=== PATIENT | female | born 1990 | race Caucasian/White ===

== ENCOUNTER 2018-08-01 05:16 | Inpatient (IN) | payer MEDICAID ==
--- NOTE | 2018-07-31 10:49 | PCM.PREANE ---
Preanesthetic Assessment - Anesthesia/Transfusion/Family Hx Anesthesia History: Prior Anesthesia Without Reaction (previous under spinal (decreased heart rate): SAB without problems. No other history of surgeries or anesthetics.) Family History of Anesthesia Reaction: No Transfusion History: No Prior Transfusion(s) - Review of Systems General: No Symptoms (obese) Pulmonary: No Symptoms (quit smoking 2013, no Marajuana x 1 year,) Cardiovascular: No Symptoms (palpitations--history ofSVTs--workup was negative. lStill has occasional episodes of SVTs with this --no dizziness or LOC- -brief periods, spontaneous resolutions. No treatment for SVTs.) Neurological: No Symptoms (PTSD, history of concussion 2008 with no residuals) Other: Reports: None (chilo/candidiasis, maxillary sinusitis,) - Physical Assessment NPO Status Date: 08/01/18 NPO Status Time: 00:00 Pulse: 87 O2 Sat by Pulse Oximetry: 97 Respiratory Rate: 20 Blood Pressure: 128/65 Height: 1.75 m Weight: 96.162 kg ASA Class: 2 Mental Status: Alert & Oriented x3 Airway Class: Mallampati = 2 Dentition: Reports: Normal Dentition Thyro-Mental Finger Breadths: 2 Mouth Opening Finger Breadths: 3 ROM/Head Extension: Full Lungs: Clear to Auscultation, Normal Respiratory Effort Cardiovascular: Regular Rate, Regular Rhythm, No Murmurs - Lab Values: 2013 workup for palpitaitons was normal. jWorkup included EKG, ECHO (65% EF), Chest CT, Holter. Jul 23 HH= 13.2/37.9 plts = 231k - Allergies Allergies/Adverse Reactions: Allergies Allergy/AdvReac Type Severity Reaction Status Date / Time latex Allergy Rash Verified 07/26/18 14:00 - Blood Blood Available: Yes Product(s) Available: PRBC - Anesthesia Plan Pre-Op Medication Ordered: Antacids - Acknowledgements Anesthesia Type Planned: Spinal (Plan: SAB wit GA backup. Discussed with patient and spouse (James). All questions answered. Consent signed.) Pt an Appropriate Candidate for the Planned Anesthesia: Yes Alternatives and Risks of Anesthesia Discussed w Pt/Guardian: Yes Pt/Guardian Understands and Agrees with Anesthesia Plan: Yes PreAnesthesia Questionnaire HEENT History: Cardiovascular History: Reports: Arrhythmia Other Cardiovascular History: hx SVT Genitourinary History: Reports: None GRADUATE FELLOW History: Reports: Musculoskeletal History: Reports: Fracture Other Musculoskeletal History: hx fx foot Neurological History: Reports: Concussion Psychiatric History: Reports: PTSD - Past Surgical History Head Surgeries/Procedures: Reports: None Female Surgical History: Reports: Section - SUBSTANCE USE Smoking Status *Q: Former Smoker Recreational Drug Use History: Yes 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
[2018-08-01] MEDS ORDERED: Citric Acid/Sodium Citrate Solution 30 ML Cup PO ONE (05:44)
[2018-08-01] MEDS ORDERED: Sodium Chloride 0.9% 10 ML Syringe FLUSH PRN (05:44)
[2018-08-01] MEDS ORDERED: Sodium Chloride 0.9% 2.5 ML Syringe FLUSH PRN (05:44)
[2018-08-01] MEDS ORDERED: Oxytocin/0.9 % Sodium Chloride 30 UNIT/500 ML BAG IV SCH (05:45)
[2018-08-01] MEDS: Lactated Ringers 1,000 ML IV SCH ×3 (05:45→07:59)
[2018-08-01] MEDS ORDERED: Methylergonovine 0.2 MG/1 ML Amp ONE (06:55)
[2018-08-01] MEDS ORDERED: ceFAZolin 1 GM Vial ONE ×2 (06:56)
[2018-08-01] MEDS ORDERED: Sodium Chloride 0.9% 20 ML ONE ×2 (06:56)
[2018-08-01] MEDS ORDERED: Oxytocin 10 Units/1 ML SDV ONE ×4 (06:57)
[2018-08-01] MEDS ORDERED: diphenhydrAMINE 50 MG/ML SDV ONE (06:57)
[2018-08-01] MEDS ORDERED: Phenylephrine 1% 10 MG/ML SDV ONE (06:57)
[2018-08-01] MEDS ORDERED: Ondansetron 4 MG/2 ML SDV ONE (06:57)
[2018-08-01] MEDS ORDERED: Morphine PF 10 MG/10 ML SDV ONE (06:58)
[2018-08-01] MEDS ORDERED: Propofol 200 MG/20 ML SDV ONE (07:03)
[2018-08-01] MEDS ORDERED: ceFAZolin 2 GM in Premix Bag 1 BAG IV ONE (07:45)
[2018-08-01] MEDS ORDERED: Citric Acid/Sodium Citrate Solution 30 ML Cup ONE (07:52)
[2018-08-01] MEDS ORDERED: Aluminum Hydroxide/Magnesium Hydroxide/Simethicone Susp 30 ML Cup PO PRN (08:53)
[2018-08-01] MEDS ORDERED: Ondansetron 4 MG/2 ML SDV IVPUSH PRN (08:53)
[2018-08-01] MEDS ORDERED: Lanolin 100% Cream 7 GM Tube TOP PRN (08:53)
[2018-08-01] MEDS ORDERED: diphenhydrAMINE 50 MG/ML SDV IVPUSH PRN (08:53)
[2018-08-01] MEDS ORDERED: Bisacodyl 10 MG Supp RECTAL PRN (08:53)
[2018-08-01] MEDS ORDERED: Acetaminophen/oxyCODONE 325-5 MG Tab PO PRN ×2 (08:53)
[2018-08-01] MEDS ORDERED: Nalbuphine 10 MG/1 ML Vial IVPUSH PRN (08:59)
[2018-08-01] MEDS ORDERED: Meperidine PF 25 MG/ML Syringe IVPUSH SCH (09:00)
[2018-08-01] MEDS ORDERED: Lactated Ringers 1,000 ML IV SCH (09:00)
[2018-08-01] MEDS ORDERED: Ondansetron 4 MG/2 ML SDV IVPUSH SCH (09:00)
--- NOTE | 2018-08-01 09:01 | PCM.OPNOTE ---
- General Post-Op/Procedure Note Date of Surgery/Procedure: 08/01/18 Operative Procedure(s): Repeat LTCS Findings: Viable female APGARs 8, 9 weight 3950 gm. Intact placenta with 3V cord. Normal appearing pelvis. Pre Op Diagnosis: 39 week IUP. Previous c section, desires repeat Post-Op Diagnosis: Same Anesthesia Technique: Spinal Primary Surgeon: Patti Jose Fluid Replacement, Intraop: 2,600 EBL in mLs: 350 Complications: none known Condition: Good Free Text/Narrative:: Dictation [id number]
[2018-08-01] MEDS: Ketorolac 30 MG/ML SDV IVPUSH SCH ×3 (09:13→21:14)
--- NOTE | 2018-08-01 14:01 | PCM48HPAN ---
Post Anesthesia Note - EVALUATION WITHIN 48HRS OF ANESTHETIC Vital Signs in Normal Range: Yes Patient Participated in Evaluation: Yes Respiratory Function Stable: Yes Airway Patent: Yes Cardiovascular Function Stable: Yes Hydration Status Stable: Yes Pain Control Satisfactory: Yes Nausea and Vomiting Control Satisfactory: Yes Pulse Rate: 87 Resp Rate: 17 Blood Pressure: 128/65 - COMMENTS/OBSERVATIONS Free Text/Narrative:: awake, alert, vitals stable. Minimal pain. No nausea. Spinal work off. Has not yet urinated. Good post op phase II recovery.
--- NOTE | 2018-08-01 15:37 | OR ---
SURGEON: Patti Jose M.D. DATE OF PROCEDURE: 08/01/2018 PREOPERATIVE DIAGNOSES: 1. Thirty-nine week intrauterine . 2. Previous section, desires repeat. POSTOPERATIVE DIAGNOSES: 1. Thirty-nine week intrauterine . 2. Previous section, desires repeat. PROCEDURE: Repeat low-transverse section. ANESTHESIA: Spinal. ESTIMATED BLOOD LOSS: 350 mL. FLUIDS: 2600 mL of crystalloid. FINDINGS: Viable female, scores of 8 at one minute and 9 at five minutes, weight of 3950 g, intact placenta with three-vessel cord, normal-appearing pelvis. COMPLICATIONS: None. DISPOSITION: The patient to PACU, infant nursery, stable. INDICATION FOR PROCEDURE: Joann is a 28-year-old, G3, P1-0-1-1, at 39 weeks' gestational age, presents this morning for a scheduled repeat delivery. Risks of the procedure have been discussed and proper consent obtained. PROCEDURE IN DETAIL: The patient was taken to the operating room, where she underwent spinal anesthesia and then was placed in dorsal supine position with leftward tilt. SCDs to lower extremities. Strickland to gravity. She was prepped and draped in usual sterile fashion. Anesthesia was tested and found to be adequate. Previous Pfannenstiel scar was now excised. Subcutaneous tissue was incised down to the level of the rectus fascia, which was incised in midline, lateralized on either side. The superior aspect of the fascia was tented upward, dissected sharply and bluntly from underlying muscles. In a similar aspect, it was performed with the inferior aspect of the fascia. The rectus muscles and peritoneum were now entered. Rectus muscles in the midline. Peritoneum was in midline and lateralized bluntly. Uterine position and position gently palpated. A self-retaining retractor now gently placed. Uterovesical reflection visualized. Bladder flap was created sharply and bluntly. Bladder was mobilized away from lower uterine segment. Low transverse hysterotomy was now performed. The uterine cavity was entered with blunt-end scalpel. Hysterotomy was lateralized bluntly. Amniotomy was performed. Clear fluid was returned. Head was flexed. Fundal pressure was applied. The head was delivered, followed by anterior shoulder, posterior shoulder, and remainder of the body without difficulty. The infant's oropharynx and nares bulb suctioned. The cord was clamped x2 and cut. was handed off to attending nursing staff. Cord arterial, cord venous, cord blood samples obtained. The placenta was now delivered. Uterine cavity was cleared of all clot and debris. The posterior aspect of the uterus was inspected, no defects or hematomas found to be forming. Tubes and ovaries appeared normal. The region was well irrigated and suction dried. The uterus returned to abdominal cavity. Colonic gutters were cleared of all clots and debris, well irrigated and suction dried. Any areas of oozing were cauterized. Hemostasis appeared evident. Self-retaining retractor now gently removed. Bladder blade was placed. Hysterotomy once again was inspected and found to be hemostatic. The bladder blade was removed. The rectus muscle and peritoneum were now re- approximated using 0 Vicryl an inverted mattress suture technique. Anterior aspect of the muscle, posterior aspect of the fascia closely inspected. Any areas of oozing were cauterized. The rectus fascia was re-approximated using 0 Vicryl beginning laterally on each side and meeting in the midline. Subcutaneous tissues were irrigated and suction dried. Any areas of oozing were cauterized. The skin edges were re-approximated with 3-0 Vicryl in subcuticular fashion on a Maurilio needle, followed by re-imbrication with half-inch Steri- Strips and Mastisol. Uterus remained firm. Sponge, instrument, and needle counts were correct x2. The patient tolerated the procedure well overall. She will go to PACU in stable condition, to nursery. CHARLES / ZOYA /[id number]
[2018-08-01] MEDS: Docusate Sodium 100 MG Cap PO SCH ×2 (20:33→21:14)
[2018-08-02] MEDS: Simethicone 80 MG Tab.Chew PO SCH ×4 (00:55→20:16)
[2018-08-02] MEDS: Ketorolac 30 MG/ML SDV IVPUSH SCH ×2 (03:23→10:00)
--- NOTE | 2018-08-02 08:49 | PCM.PNPP ---
- General Info Date of Service: 08/02/18 Functional Status: Reports: Pain Controlled, Tolerating Diet, Ambulating, Urinating - Review of Systems General: Denies: Fever, Weakness, Fatigue Pulmonary: Denies: Shortness of Breath Cardiovascular: Denies: Chest Pain, Palpitations, Lightheadedness Gastrointestinal: Denies: Abdominal Pain, Nausea, Vomiting Genitourinary: Denies: Flank Pain Neurological: Reports: No Symptoms Psychiatric: Reports: No Symptoms - General Info Date of Service: 08/02/18 - Patient Data Vital Signs - Most Recent: Last Vital Signs Temp 35.9 C 08/02/18 08:24 Pulse 80 08/02/18 08:24 Resp 17 08/02/18 08:24 BP 108/64 08/02/18 08:24 Pulse Ox 93 L 08/02/18 08:24 Weight - Most Recent: 96.162 kg I&O - Last 24 Hours: Intake & Output 08/01/18 08/02/18 08/02/18 22:59 06:59 14:59 Intake Total 300 Output Total 715 2300 Balance -415 -2300 Lab Results - Last 24 Hours: Laboratory Results - last 24 hr 08/01/18 08/02/18 Range/Units 08:27 04:54 Hgb 11.0 L (12.0-16.0) g/dL Hct 32.5 L (36.0-46.0) % Cord ABG pH 7.202 (7.18-7.38) Cord ABG Base Excess -3 (-10--2) Cord VBG pH 7.316 (7.25-7.45) Cord VBG Base Excess -4 (-10--2) Med Orders - Current: Current Medications Al Hydroxide/Mg Hydroxide (Mag-Al Plus) 30 ml PO Q8H PRN PRN Reason: Heartburn Bisacodyl (Dulcolax) 10 mg RECTAL ONETIME PRN PRN Reason: Constipation Diphenhydramine HCl (Benadryl) 25 mg IVPUSH Q6H PRN PRN Reason: Itching or Nausea Last Admin: 08/01/18 15:24 Dose: 25 mg Docusate Sodium (Colace) 100 mg PO BID [facility] Last Admin: 08/01/18 21:14 Dose: 100 mg Emollient Ointment (Lansinoh Hpa) 0 gm TOP ASDIRECTED PRN PRN Reason: Sore Nipples Lactated Ringer's (Ringers, Lactated) 1,000 mls @ 500 mls/hr IV BOLUS [facility] Last Admin: 08/01/18 07:59 Dose: 999 mls/hr Oxytocin/Sodium Chloride (Oxytocin 30 Unit/500 Ml-Ns) 30 unit in 500 mls @ 250 mls/hr IV TITRATE [facility] Lactated Ringer's (Ringers, Lactated) 1,000 mls @ 125 mls/hr IV ASDIRECTED [facility] Last Admin: 08/01/18 11:01 Dose: 125 mls/hr Ibuprofen (Motrin) 800 mg PO Q8H PRN PRN Reason: mild pain or fever Ketorolac Tromethamine (Toradol) 30 mg IVPUSH Q6H [facility] Stop: 08/02/18 09:01 Last Admin: 08/02/18 03:23 Dose: 30 mg Meperidine HCl (Demerol) 12.5 mg IVPUSH .ONCE [facility] Nalbuphine HCl (Nubain) 5 mg IVPUSH Q3H PRN PRN Reason: Pruritis Stop: 08/02/18 09:00 Ondansetron HCl (Zofran) 4 mg IVPUSH Q4H PRN PRN Reason: Nausea/Vomiting Last Admin: 08/01/18 14:58 Dose: 4 mg Ondansetron HCl (Zofran) 4 mg IVPUSH .ONCE [facility] Oxycodone/Acetaminophen (Percocet 325-5 Mg) 1 tab PO Q4H PRN PRN Reason: Pain (moderate 4-6) Oxycodone/Acetaminophen (Percocet 325-5 Mg) 2 tab PO Q4H PRN PRN Reason: Pain (moderate 4-6) Simethicone (Simethicone) 160 mg PO QID [facility] Last Admin: 08/02/18 06:56 Dose: Not Given Sodium Chloride (Saline Flush) 10 ml FLUSH ASDIRECTED PRN PRN Reason: Keep Vein Open Sodium Chloride (Saline Flush) 2.5 ml FLUSH ASDIRECTED PRN PRN Reason: Keep Vein Open Discontinued Medications Cefazolin Sodium (Ancef) Confirm Administered Dose 1 gm .ROUTE .[facility] ONE Stop: 08/01/18 06:57 Cefazolin Sodium (Ancef) Confirm Administered Dose 1 gm .ROUTE .[facility] ONE Stop: 08/01/18 06:57 Citric Acid/Sodium Citrate (Bicitra Solution) 30 ml PO ONETIME ONE Stop: 08/01/18 05:45 Last Admin: 08/01/18 07:58 Dose: 30 ml Citric Acid/Sodium Citrate (Bicitra Solution) Confirm Administered Dose 30 ml .ROUTE .[facility] ONE Stop: 08/01/18 07:53 Last Admin: 08/01/18 20:31 Dose: Not Given Diphenhydramine HCl (Benadryl) Confirm Administered Dose 50 mg .ROUTE .[facility] ONE Stop: 08/01/18 06:58 Cefazolin Sodium/Dextrose 2 gm (/ Premix) 50 mls @ 100 mls/hr IV ONETIME ONE Stop: 08/01/18 08:14 Last Admin: 08/01/18 20:32 Dose: Not Given Sodium Chloride (Normal Saline) Confirm Administered Dose 20 mls @ as directed .ROUTE .[facility] ONE Stop: 08/01/18 06:57 Sodium Chloride (Normal Saline) Confirm Administered Dose 20 mls @ as directed .ROUTE .[facility] ONE Stop: 08/01/18 06:57 Methylergonovine Maleate (Methergine) Confirm Administered Dose 0.2 mg .ROUTE .[facility] ONE Stop: 08/01/18 06:56 Morphine Sulfate (Duramorph Pf) Confirm Administered Dose 10 mg .ROUTE .[facility] ONE Stop: 08/01/18 06:59 Ondansetron HCl (Zofran) Confirm Administered Dose 4 mg .ROUTE .[facility] ONE Stop: 08/01/18 06:58 Oxytocin (Pitocin) Confirm Administered Dose 10 unit .ROUTE .[facility] ONE Stop: 08/01/18 06:58 Oxytocin (Pitocin) Confirm Administered Dose 10 unit .ROUTE .[facility] ONE Stop: 08/01/18 06:58 Oxytocin (Pitocin) Confirm Administered Dose 10 unit .ROUTE .[facility] ONE Stop: 08/01/18 06:58 Oxytocin (Pitocin) Confirm Administered Dose 10 unit .ROUTE .[facility] ONE Stop: 08/01/18 06:58 Phenylephrine HCl (Amadeo-Synephrine) Confirm Administered Dose 10 mg .ROUTE .[facility] ONE Stop: 08/01/18 06:58 Propofol (Diprivan 20 Ml) Confirm Administered Dose 200 mg .ROUTE .[facility] ONE Stop: 08/01/18 07:04 - Infant Interaction Support Person: Significant Other - Recovery Exam Fundal Tone: Firm Fundal Level: 1 Fingerbreadths Below Umbilicus Fundal Placement: Midline Lochia Amount: Small Lochia Color: Rubra/Red Perineum Description: Intact, Minimal Bruising/Swelling, Edematous Episiotomy/Laceration: None Bladder Status: Indwelling Catheter in Place Urinary Elimination: Indwelling Catheter - Exam General: Alert, Oriented Lungs: Normal Respiratory Effort Cardiovascular: Regular Rate, Regular Rhythm GI/Abdominal Exam: Normal Bowel Sounds, Soft Extremities: Pedal Edema (trace). No: Mariela's Sign Skin: Warm, Dry, Intact Wound/Incisions: Healing Well, No Drainage. No: Erythema Neurological: No New Focal Deficit Psy/Mental Status: Alert, Normal Affect, Normal Mood - Problem List & Annotations (1) delivery delivered SNOMED Code(s): 730372070 Code(s): O82 - ENCOUNTER FOR DELIVERY WITHOUT INDICATION Status: Acute Current Visit: Yes - Problem List Review Problem List Initiated/Reviewed/Updated: Yes - My Orders Last 24 Hours: My Active Orders 08/01/18 08:53 Patient Status [ADT] Routine Antiembolic Devices [RC] PER UNIT ROUTINE Communication Order [RC] PER UNIT ROUTINE Communication Order [RC] PER UNIT ROUTINE Communication Order [RC] Per Unit Routine May Shower [RC] ASDIRECTED Notify Provider Intake and Out [RC] ASDIRECTED Notify Provider Vital Signs [RC] ASDIRECTED RT Incentive Spirometry [RC] Q2HWA Vital Signs [RC] PER UNIT ROUTINE Acetaminophen/oxyCODONE [Percocet 325-5 MG] 1 tab PO Q4H PRN Acetaminophen/oxyCODONE [Percocet 325-5 MG] 2 tab PO Q4H PRN Alum Hydrox/Mag Hydrox/Simeth [Mag-Al Plus] 30 ml PO Q8H PRN Bisacodyl [Dulcolax] 10 mg RECTAL ONETIME PRN Ibuprofen [Motrin] 800 mg PO Q8H PRN Lanolin [Lansinoh HPA] See Dose Instructions TOP ASDIRECTED PRN Ondansetron [Zofran] 4 mg IVPUSH Q4H PRN diphenhydrAMINE [Benadryl] 25 mg IVPUSH Q6H PRN Abdominal Binder [OM.PC] Routine Assess Lochia [WOMSER] Per Unit Routine Assess Uterine Involution [WOMSER] Per Unit Routine Breast Pump [WOMSER] Per Unit Routine Heat Therapy [OM.PC] Routine Ice Therapy [OM.PC] Routine Peripheral IV Discontinue [OM.PC] Routine Sequential Compression Device [OM.PC] Per Unit Routine 08/01/18 09:00 Docusate Sodium [Colace] 100 mg PO BID Ketorolac [Toradol] 30 mg IVPUSH Q6H Lactated Ringers [Ringers, Lactated] 1,000 ml IV ASDIRECTED 08/01/18 12:00 Simethicone 160 mg PO QID 08/01/18 Lunch Regular Diet [DIET] - Assessment Assessment:: POD 1 status post repeat c section - Plan Plan:: Continue postop cares. Ambulate halls. Doing well overall.
[2018-08-02] MEDS: Docusate Sodium 100 MG Cap PO SCH ×2 (09:59→21:09)
[2018-08-02] MEDS: Ibuprofen 800 MG Tab PO PRN (18:27)
[2018-08-03] MEDS: Simethicone 80 MG Tab.Chew PO SCH ×3 (01:07→15:42)
[2018-08-03] MEDS: Ibuprofen 800 MG Tab PO PRN (03:46)
[2018-08-03 05:23] VITALS: BP 123/68
--- NOTE | 2018-08-03 08:48 | PCM.PNPP ---
- General Info Date of Service: 08/03/18 Functional Status: Reports: Pain Controlled, Tolerating Diet, Ambulating, Urinating - Review of Systems General: Reports: Fatigue. Denies: Fever, Weakness Pulmonary: Denies: Shortness of Breath Cardiovascular: Denies: Chest Pain, Palpitations, Lightheadedness Gastrointestinal: Reports: Abdominal Pain (controlled incisional pain), Flatus. Denies: Nausea, Vomiting Genitourinary: Denies: Flank Pain Musculoskeletal: Reports: No Symptoms Skin: Reports: No Symptoms Neurological: Reports: No Symptoms - General Info Date of Service: 08/03/18 - Patient Data Vital Signs - Most Recent: Last Vital Signs Temp 36.6 C 08/03/18 04:00 Pulse 85 08/03/18 04:00 Resp 17 08/03/18 04:00 BP 123/68 08/03/18 04:00 Pulse Ox 94 L 08/03/18 04:00 Weight - Most Recent: 96.162 kg Med Orders - Current: Current Medications Al Hydroxide/Mg Hydroxide (Mag-Al Plus) 30 ml PO Q8H PRN PRN Reason: Heartburn Bisacodyl (Dulcolax) 10 mg RECTAL ONETIME PRN PRN Reason: Constipation Diphenhydramine HCl (Benadryl) 25 mg IVPUSH Q6H PRN PRN Reason: Itching or Nausea Last Admin: 08/01/18 15:24 Dose: 25 mg Docusate Sodium (Colace) 100 mg PO BID [facility] Last Admin: 08/02/18 21:09 Dose: 100 mg Emollient Ointment (Lansinoh Hpa) 0 gm TOP ASDIRECTED PRN PRN Reason: Sore Nipples Lactated Ringer's (Ringers, Lactated) 1,000 mls @ 500 mls/hr IV BOLUS [facility] [place] Last Admin: 08/01/18 07:59 Dose: 999 mls/hr Oxytocin/Sodium Chloride (Oxytocin 30 Unit/500 Ml-Ns) 30 unit in 500 mls @ 250 mls/hr IV TITRATE [facility] Lactated Ringer's (Ringers, Lactated) 1,000 mls @ 125 mls/hr IV ASDIRECTED [facility] [place] Last Admin: 08/01/18 11:01 Dose: 125 mls/hr Ibuprofen (Motrin) 800 mg PO Q8H PRN PRN Reason: mild pain or fever Last Admin: 08/03/18 03:46 Dose: 800 mg Meperidine HCl (Demerol) 12.5 mg IVPUSH .ONCE [facility] Ondansetron HCl (Zofran) 4 mg IVPUSH Q4H PRN PRN Reason: Nausea/Vomiting Last Admin: 08/01/18 14:58 Dose: 4 mg Ondansetron HCl (Zofran) 4 mg IVPUSH .ONCE [facility] Oxycodone/Acetaminophen (Percocet 325-5 Mg) 1 tab PO Q4H PRN PRN Reason: Pain (moderate 4-6) Oxycodone/Acetaminophen (Percocet 325-5 Mg) 2 tab PO Q4H PRN PRN Reason: Pain (moderate 4-6) Simethicone (Simethicone) 160 mg PO QID [facility] Last Admin: 08/03/18 01:07 Dose: Not Given Sodium Chloride (Saline Flush) 10 ml FLUSH ASDIRECTED PRN PRN Reason: Keep Vein Open Sodium Chloride (Saline Flush) 2.5 ml FLUSH ASDIRECTED PRN PRN Reason: Keep Vein Open Discontinued Medications Cefazolin Sodium (Ancef) Confirm Administered Dose 1 gm .ROUTE .[facility] ONE Stop: 08/01/18 06:57 Cefazolin Sodium (Ancef) Confirm Administered Dose 1 gm .ROUTE .[facility] ONE Stop: 08/01/18 06:57 Citric Acid/Sodium Citrate (Bicitra Solution) 30 ml PO ONETIME ONE Stop: 08/01/18 05:45 Last Admin: 08/01/18 07:58 Dose: 30 ml Citric Acid/Sodium Citrate (Bicitra Solution) Confirm Administered Dose 30 ml .ROUTE .[facility] ONE Stop: 08/01/18 07:53 Last Admin: 08/01/18 20:31 Dose: Not Given Diphenhydramine HCl (Benadryl) Confirm Administered Dose 50 mg .ROUTE .[facility] ONE Stop: 08/01/18 06:58 Cefazolin Sodium/Dextrose 2 gm (/ Premix) 50 mls @ 100 mls/hr IV ONETIME ONE Stop: 08/01/18 08:14 Last Admin: 08/01/18 20:32 Dose: Not Given Sodium Chloride (Normal Saline) Confirm Administered Dose 20 mls @ as directed .ROUTE .[facility] ONE Stop: 08/01/18 06:57 Sodium Chloride (Normal Saline) Confirm Administered Dose 20 mls @ as directed .ROUTE .[facility] ONE Stop: 08/01/18 06:57 Ketorolac Tromethamine (Toradol) 30 mg IVPUSH Q6H [facility] Stop: 08/02/18 09:01 Last Admin: 08/02/18 10:00 Dose: 30 mg Methylergonovine Maleate (Methergine) Confirm Administered Dose 0.2 mg .ROUTE .[facility] ONE Stop: 08/01/18 06:56 Morphine Sulfate (Duramorph Pf) Confirm Administered Dose 10 mg .ROUTE .[facility] ONE Stop: 08/01/18 06:59 Nalbuphine HCl (Nubain) 5 mg IVPUSH Q3H PRN PRN Reason: Pruritis Stop: 08/02/18 09:00 Ondansetron HCl (Zofran) Confirm Administered Dose 4 mg .ROUTE .[facility] ONE Stop: 08/01/18 06:58 Oxytocin (Pitocin) Confirm Administered Dose 10 unit .ROUTE .[facility] ONE Stop: 08/01/18 06:58 Oxytocin (Pitocin) Confirm Administered Dose 10 unit .ROUTE .[facility] ONE Stop: 08/01/18 06:58 Oxytocin (Pitocin) Confirm Administered Dose 10 unit .ROUTE .[facility] ONE Stop: 08/01/18 06:58 Oxytocin (Pitocin) Confirm Administered Dose 10 unit .ROUTE .[facility] ONE Stop: 08/01/18 06:58 Phenylephrine HCl (Amadeo-Synephrine) Confirm Administered Dose 10 mg .ROUTE .[facility]- [facility] ONE Stop: 08/01/18 06:58 Propofol (Diprivan 20 Ml) Confirm Administered Dose 200 mg .ROUTE .[facility] ONE Stop: 08/01/18 07:04 - Interaction Support Person: Significant Other - Recovery Exam Fundal Tone: Firm Fundal Level: 1 Fingerbreadths Below Umbilicus Fundal Placement: Midline Lochia Amount: Scant Lochia Color: Rubra/Red Perineum Description: Intact, Minimal Bruising/Swelling, Edematous Episiotomy/Laceration: Approximated Bladder Status: Voiding Urinary Elimination: Voided - Exam General: Alert, Oriented Lungs: Normal Respiratory Effort Cardiovascular: Regular Rate, Regular Rhythm GI/Abdominal Exam: Normal Bowel Sounds, Soft, No Distention, Tender ( appropriately along incision) Extremities: Pedal Edema (trace). No: Mariela's Sign Skin: Warm, Dry, Intact Wound/Incisions: Healing Well, No Drainage. No: Erythema Neurological: No New Focal Deficit Psy/Mental Status: Alert, Normal Affect, Normal Mood - Problem List & Annotations (1) delivery delivered SNOMED Code(s): 412044860 Code(s): O82 - ENCOUNTER FOR DELIVERY WITHOUT INDICATION Status: Acute Current Visit: Yes - Problem List Review Problem List Initiated/Reviewed/Updated: Yes - My Orders Last 24 Hours: My Active Orders 08/03/18 08:45 Ready for Discharge [RC] PER UNIT ROUTINE - Assessment Assessment:: POD 2 status post repeat c section - Plan Plan:: Patient doing well overall, she would like to go home today. Infection and bleeding warnings reviewed. Discharge instructions reviewed. Follow up at [facility] 2 and 6 weeks. Discharge to home today.
[2018-08-03] MEDS: Docusate Sodium 100 MG Cap PO SCH (15:41)
== END 2018-08-03 12:20 | disposition home or self-care (01) | DRG 788 ==
LOC: MW.OB 05:16
PROVIDERS: ADMIT Obstetrics & Gynecology; ATTEND Obstetrics & Gynecology
PROC: 6A550ZT Pheresis of Cord Blood Stem Cells, Single (ICD-10-PCS; principal; 2018-08-01)
PROC: 10D00Z1 Extraction of Products of Conception, Low, Open Approach (ICD-10-PCS; principal; 2018-08-01)
DX: O34.211 Maternal care for low transverse scar from previous cesarean delivery (principal); N85.8 Other specified noninflammatory disorders of uterus; Z3A.39 39 weeks gestation of pregnancy; Z37.0 Single live birth; Z87.891 Personal history of nicotine dependence; Z91.040 Latex allergy status
CPT/HCPCS: 01961; 36415; 59025; 82803; 85014; 85018; 85027; 86850; 86900; 86901; A9270-GY; J0690; J1200; J1885; J2210; J2274; J2370; J2405; J2590; J2704; J7120

== ENCOUNTER 2021-08-14 18:45 | Emergency (ER) | payer BC, MEDICAID ==
[2021-08-14 18:54] VITALS: BP 126/73
[2021-08-14 19:13] VITALS: PULSE 82
== END 2021-08-14 19:13 | disposition home or self-care (01) ==
LOC: MW.ED 18:45
DX: J01.90 Acute sinusitis, unspecified (principal); Z91.040 Latex allergy status
CPT/HCPCS: 99283

== ENCOUNTER 2021-11-18 14:04 | Observation (INO) | payer BC ==
[2021-11-18] MEDS ORDERED: Sodium Chloride 0.9% 2.5 ML Syringe FLUSH PRN (14:32)
[2021-11-18] MEDS ORDERED: Sodium Chloride 0.9% 10 ML Syringe FLUSH PRN (14:32)
[2021-11-18 15:41] LABS: BLOOD UREA NITROGEN,BUN 17 mg/dL (7.0-18.0); CARBON DIOXIDE,CO2 29.3 mmol/L (21.0-32.0); CHLORIDE,CL 103 mmol/L (98-107); GLUCOSE RANDOM 111 mg/dL (74-106); LIPASE 95 U/L (73-393); POTASSIUM,K 4.7 mmol/L (3.5-5.1); SODIUM,NA 140 mmol/L (136-145)
[2021-11-18] MEDS ORDERED: Iopamidol 755 MG/ML 500 ML Multipack Bottle IVPUSH STA (16:15)
[2021-11-18] MEDS ORDERED: cefTRIAXone 1 GM in Sodium Chloride 0.9% 50 ML IV ONE (19:35)
[2021-11-18] MEDS ORDERED: Sodium Chloride 0.9% 1,000 ML IV ONE (19:37)
[2021-11-18] MEDS ORDERED: Ondansetron 4 MG/2 ML SDV IVPUSH ONE (20:40)
[2021-11-18] MEDS ORDERED: Sodium Chloride 0.9% 1,000 ML IV SCH (22:30)
[2021-11-18] MEDS ORDERED: Ibuprofen 200 MG Tab PO PRN (23:41)
[2021-11-18] MEDS ORDERED: Acetaminophen 325 MG Tab PO PRN (23:41)
[2021-11-19] MEDS: Ciprofloxacin in D5W 400 MG in Premix Bag 1 BAG IV SCH ×4 (00:23→11:27)
[2021-11-19] MEDS: metroNIDAZOLE/Normal Saline 500 MG in Premix Bag 1 BAG IV SCH ×2 (01:37→06:04)
[2021-11-19 07:11] LABS: BLOOD UREA NITROGEN,BUN 11 mg/dL (7.0-18.0); CARBON DIOXIDE,CO2 26.9 mmol/L (21.0-32.0); CHLORIDE,CL 106 mmol/L (98-107); GLUCOSE RANDOM 87 mg/dL (74-106); POTASSIUM,K 3.7 mmol/L (3.5-5.1); SODIUM,NA 140 mmol/L (136-145)
[2021-11-19 11:35] VITALS: BP 95/54; PULSE 61
== END 2021-11-19 12:50 | disposition home or self-care (01) ==
LOC: MW.ED 14:04 → MW.MS 20:26
PROVIDERS: ADMIT Internal Medicine; ATTEND Internal Medicine
DX: K80.62 Calculus of gallbladder and bile duct with acute cholecystitis without obstruction (principal); H54.7 Unspecified visual loss; Z91.040 Latex allergy status; Z20.822 Contact with and (suspected) exposure to COVID-19; Z79.899 Other long term (current) drug therapy
CPT/HCPCS: 36415; 74177; 76705; 80053; 81003; 83605; 83690; 84703; 85025; 87040; 87635; 96365; 96367; 96376; 99285; G0378; J0696; J0744; J3490; J7030; Q9967; 99284; U0002

== ENCOUNTER 2021-12-08 06:20 | Day surgery (SDC) | payer BC ==
[2021-12-08] MEDS ORDERED: Dexmedetomidine 200 MCG/2 ML SDV ONE (07:23)
[2021-12-08] MEDS ORDERED: Propofol 200 MG/20 ML SDV ONE (07:24)
[2021-12-08] MEDS ORDERED: Midazolam 1 MG/ML 2 ML SDV ONE (07:24)
[2021-12-08] MEDS ORDERED: Ketamine 500 mg/10 ML MDV ONE (07:24)
[2021-12-08] MEDS ORDERED: Bupivacaine 0.5% 30 ML SDV ONE (07:24)
[2021-12-08] MEDS ORDERED: Rocuronium 100 MG/10 ML MDV ONE (07:25)
[2021-12-08] MEDS ORDERED: Albuterol 0.083% 2.5 MG/3 ML Neb Soln NEB PRN (07:25)
[2021-12-08] MEDS ORDERED: fentaNYL 100 MCG/2 ML SDV IVPUSH PRN (07:25)
[2021-12-08] MEDS ORDERED: Ondansetron 4 MG/2 ML SDV IVPUSH PRN (07:25)
[2021-12-08] MEDS ORDERED: HYDROmorphone 1 MG/ML Syringe IVPUSH PRN (07:25)
[2021-12-08] MEDS ORDERED: Morphine 4 MG/ML VIAL IVPUSH PRN ×2 (07:25→09:30)
[2021-12-08] MEDS ORDERED: Naloxone 0.4 MG/ML SDV IVPUSH PRN (07:25)
[2021-12-08] MEDS ORDERED: Metoclopramide 10 MG/2 ML SDV IVPUSH PRN (07:25)
[2021-12-08] MEDS ORDERED: Water For Injection, Sterile 20 ML ONE (07:25)
[2021-12-08] MEDS ORDERED: Scopolamine 1.5 MG Transdermal Patch ONE (07:31)
[2021-12-08] MEDS ORDERED: cefOXitin 2 GM in Premix Bag 1 BAG IV ONE (08:00)
[2021-12-08] MEDS ORDERED: Lactated Ringers 1,000 ML IV SCH ×2 (08:00→09:30)
[2021-12-08] MEDS ORDERED: cefOXitin 1 GM Vial ONE (08:00)
[2021-12-08] MEDS ORDERED: Dexamethasone 4 MG/ML 5 ML MDV ONE (08:20)
[2021-12-08] MEDS ORDERED: Ketorolac 30 MG/ML SDV ONE (08:31)
[2021-12-08] MEDS ORDERED: Ondansetron 4 MG/2 ML SDV ONE (08:31)
[2021-12-08] MEDS ORDERED: Sugammadex Sodium 200 MG/2 ML VIAL ONE (08:31)
[2021-12-08] MEDS ORDERED: Acetaminophen/HYDROcodone 325-5 MG Tab PO PRN (09:30)
[2021-12-08 11:57] VITALS: BP 101/54; PULSE 53
== END 2021-12-08 12:30 | disposition home or self-care (01) ==
LOC: MW.SDS 06:20
PROVIDERS: ATTEND Surgery
DX: K80.10 Calculus of gallbladder with chronic cholecystitis without obstruction (principal); I47.1 Supraventricular tachycardia; K21.9 Gastro-esophageal reflux disease without esophagitis; F17.210 Nicotine dependence, cigarettes, uncomplicated; Z98.890 Other specified postprocedural states; Z91.040 Latex allergy status
CPT/HCPCS: 36415; 47562; 81025; 84702; J0131; J0694; J1100; J1170; J1885; J2250; J2370; J2405; J2704; J3490; J7030

== ENCOUNTER 2022-07-07 16:37 | Emergency (ER) | payer BC ==
[2022-07-07 17:10] VITALS: BP 106/62; PULSE 97
== END 2022-07-07 19:47 | disposition left against medical advice (07) ==
LOC: MW.ED 16:37
DX: Z53.21 Procedure and treatment not carried out due to patient leaving prior to being seen by health care provider (principal)
CPT/HCPCS: 93005